=== PATIENT | male | born 1950 | race African-American/Black ===

== ENCOUNTER 2023-10-23 06:23 | Emergency (ER) | payer OTHER ==
[2023-10-23 06:28] VITALS: RESP 18; TEMP 97.8; BMI 33.0
[2023-10-23] MEDS ORDERED: ASPIRIN 81 MG CHEWABLE TABLETS ONE (08:08)
[2023-10-23] MEDS: ASPIRIN 81 MG CHEWABLE TABLETS PO ONE (08:12)
[2023-10-23 08:17] LABS: BASO % 0.7 % (0-2.0); EOS % 3.1 % (0-4.5); HEMATOCRIT 40.5 % (35.4-49); HEMOGLOBIN 13.9 GM/dL (11.7-16.9); LYMPH % 41.9 % (8-40); MCH 32.2 pg (25.7-33.7); MCHC 34.4 g/dl (32.0-35.9); MEAN CELL VOLUME 93.7 fl (80-96); MEAN PLT VOLUME 8.6 fl (7.5-11.1); MONO % 11.2 % (3.8-10.2); NEUT % 43.1 % (42.8-82.8); PLATELET COUNT 201 10^3/uL (134-434); RBC 4.32 M/mm3 (4.00-5.60); RDW 13.8 % (11.9-15.9); WHITE BLOOD COUNT 7.2 K/mm3 (4.0-10.0)
[2023-10-23 08:24] LABS: INR 1.55 (0.83-1.09); PROTHROMBIN TIME (PATIENT) 17.6 SEC (9.7-13.0)
[2023-10-23 08:27] LABS: ACTIVATED PTT 35.9 SECONDS (25.2-36.5)
[2023-10-23 08:41] LABS: ALBUMIN 3.8 g/dl (3.4-5.0); CALCIUM 9.1 mg/dL (8.5-10.1)
[2023-10-23 08:42] LABS: MAGNESIUM 2.1 mg/dL (1.8-2.4)
[2023-10-23 08:45] LABS: CREATININE 1.6 mg/dL (0.55-1.3)
[2023-10-23 08:46] LABS: BILIRUBIN,TOTAL 0.4 mg/dL (0.2-1); TOT PROT 8.5 g/dl (6.4-8.2)
[2023-10-23 09:41] LABS: EPI CELLS 4 /uL (0-25.1); HYALINE CASTS 0 /uL (0-3.1); PH,URINE 5.5 (5.0-8.0); URINE APPEARANCE CLEAR; URINE BACTERIA 3556 /uL (0-1359); URINE BILIRUBIN NEGATIVE (NEGATIVE); URINE COLOR YELLOW; URINE GLUCOSE (UA) NEGATIVE (NEGATIVE); URINE KETONE NEGATIVE (NEGATIVE); URINE LEUK ESTERASE TRACE (NEGATIVE); URINE NITRITE NEGATIVE (NEGATIVE); URINE PROTEIN NEGATIVE (NEGATIVE); URINE RBC 4 /uL (0-23.9); URINE UROBILINOGEN 0.2 mg/dL (0.2-1.0); URINE WBC 26 /uL (0-25.8)
[2023-10-23 10:14] VITALS: BP 138/71; PULSE 61
== END 2023-10-23 10:41 | disposition home or self-care (01) ==
LOC: JER 06:23
DX: R07.89 Other chest pain (principal); R10.32 Left lower quadrant pain
CPT/HCPCS: 36415; 71045-TC-FY; 80053; 81003; 82550; 82553; 83735; 84484; 85025; 85610; 85730; 87086; 87186; 93005; 93010; 99285-25

== ENCOUNTER 2024-10-02 12:46 | Emergency (ER) | payer OTHER ==
[2024-10-02 13:48] VITALS: BP 127/79; PULSE 90; RESP 18; TEMP 98.2; BMI 32.3
[2024-10-02] MEDS: LIDOCAINE 5% TOPICAL PATCH TP ONE (13:50)
[2024-10-02] MEDS ORDERED: LIDOCAINE 4% PATCH TP ONE (14:06)
[2024-10-02] MEDS ORDERED: LIDOCAINE PATCH REMOVAL MC SCH (22:00)
== END 2024-10-02 14:30 | disposition home or self-care (01) ==
LOC: JER 12:46
DX: R07.89 Other chest pain (principal)
CPT/HCPCS: 71046-TC-FY; 99283-25